=== PATIENT | female | born 1995 | race African-American/Black ===

== ENCOUNTER 2016-09-06 11:48 | Emergency (ER) | payer OTHER ==
[~2016-09-06] VITALS: Ht 149.9 cm; Wt 90.0 kg
[~2016-09-06 11:48] MED LIST: FLEXERIL PO; MEDDOSEPAK PO; NAPROSYN500 MG PO; PREVACID15 M1 OR; PROVENTIL IN; PROVENTIL90 MCG IN; SINGLAIR 5 MG CH5 MG OR; TAMIFLU 75 MG OR; ULTRAM50 M1 PO; VENTOLIN HFA IN; ZOFRAN ODT4 MG PO; ZOFRAN ODT8 MG SL
[2016-09-06] MEDS ORDERED: MOTRIN800 MG PO (12:28)
[2016-09-06] MEDS ORDERED: FLEXERIL PO (12:28)
[2016-09-06 12:32] VITALS: BP 136/57
== END 2016-09-06 12:36 | disposition home or self-care (01) | DRG 552 ==
LOC: ED 11:48
DX: M43.6 Torticollis (principal); F17.290 Nicotine dependence, other tobacco product, uncomplicated; J45.909 Unspecified asthma, uncomplicated

== ENCOUNTER 2016-10-25 03:00 | Emergency (ER) | payer OTHER ==
[~2016-10-25] VITALS: Ht 149.9 cm; Wt 106.0 kg
[~2016-10-25 03:00] MED LIST changes: +MOTRIN800 MG PO
[2016-10-25 04:41] LABS: ALBUMIN 3.7 g/dL (3.2-5.0); ALKALINE PHOSPHATASE 48 u/l (38-126); ANION GAP 12 (6-22 (CALC)); BILIRUBIN, TOTAL 0.2 mg/dL (0.0-1.4); BUN 12 mg/dL (7-17); BUN/CREATININE RATIO 20 (12-20 (CALC)); CALCIUM 8.5 mg/dL (8.4-10.2); CARBON DIOXIDE 25 mmol/l (22-30); CHLORIDE 106 mmol/l (95-108); CREATININE 0.6 mg/dL (0.5-1.0); GFR > 60 ML/MIN (>=60 (CALC)); GFR FOR AFR.AMER. > 60 ML/MIN (>=60 (CALC)); GLUCOSE 100 mg/dL (65-105); POTASSIUM 3.3 mmol/l (3.5-5.1); SGOT/AST 17 u/l (14-36); SGPT/ALT 24 u/l (9-52); SODIUM 141 mmol/l (137-146); TOTAL PROTEIN 6.5 g/dL (6.3-8.2)
[2016-10-25 04:53] LABS: MYOGLOBIN 26 ng/mL (0 - 62)
[2016-10-25 05:08] LABS: URINE BILIRUBIN - DIPSTICK NEGATIVE (NEGATIVE); URINE BLOOD DIPSTICK TRACE-INTACT (NEGATIVE); URINE CLARITY CLEAR; URINE COLOR YELLOW; URINE GLUCOSE - DIPSTICK NEGATIVE (NEGATIVE); URINE KETONE TRACE mg/dL (NEGATIVE); URINE LEUK ESTERASE NEGATIVE (NEGATIVE); URINE NITRITE - DIPSTICK NEGATIVE (Negative); URINE PROTEIN - DIPSTICK NEGATIVE (NEG-TRACE); URINE SPECIFIC GRAVITY 1.025; URINE UROBILINOGEN - DIPSTICK 0.2 E.U./dL (0.2)
[2016-10-25] MEDS ORDERED: PERCOCET 5/325M1 TAB PO (06:51)
[2016-10-25 07:05] VITALS: BP 125/65
== END 2016-10-25 07:21 | disposition home or self-care (01) | DRG 313 ==
LOC: ED 03:00
PROVIDERS: Emergency Medicine
DX: R07.89 Other chest pain (principal)

== ENCOUNTER 2017-03-03 16:11 | Emergency (ER) | payer SELFPAY ==
[~2017-03-03] VITALS: Ht 149.9 cm; Wt 105.0 kg
[~2017-03-03 16:11] MED LIST changes: +PERCOCET 5/325M1 TAB PO
[2017-03-03 16:44] LABS: HEMATOCRIT 36.6 % (37.0-47.0); HEMOGLOBIN 11.6 g/dl (12.0-16.0); IMMATURE GRANULOCYTES 0.3 % (0.0-1.0); MEAN CELL VOLUME 81.7 fL CALC (80.0-100.0); MEAN CORPUSCULAR HGB 25.9 pG CALC (26.0-32.0); MEAN CORPUSCULAR HGB CONC 31.7 g/L CALC (32.0-36.0); NEUT# 10.06 thou/uL (2.00-7.15); RED BLOOD COUNT 4.48 mill/uL (4.20-5.60); RED CELL DISTRI WIDTH 14.9 % (11.5-15.5)
[2017-03-03 17:04] LABS: ANION GAP 14 (6-22 (CALC)); BUN 13 mg/dL (7-17); BUN/CREATININE RATIO 20 (12-20 (CALC)); CALCIUM 8.7 mg/dL (8.4-10.2); CARBON DIOXIDE 21 mmol/l (22-30); CHLORIDE 111 mmol/l (95-108); CREATININE 0.7 mg/dL (0.5-1.0); GFR > 60 ML/MIN (>=60 (CALC)); GFR FOR AFR.AMER. > 60 ML/MIN (>=60 (CALC)); GLUCOSE 94 mg/dL (65-105); POTASSIUM 3.8 mmol/l (3.5-5.1); SODIUM 143 mmol/l (137-146)
[2017-03-03 18:51] VITALS: BP 127/77
== END 2017-03-03 18:51 | disposition home or self-care (01) | DRG 153 ==
LOC: ED 16:11
PROVIDERS: Family Medicine
DX: J06.9 Acute upper respiratory infection, unspecified (principal); F17.200 Nicotine dependence, unspecified, uncomplicated; J45.909 Unspecified asthma, uncomplicated

== ENCOUNTER 2019-01-30 23:19 | Emergency (ER) | payer OTHER ==
[~2019-01-30] VITALS: Ht 149.9 cm; Wt 100.0 kg
[2019-01-30] MEDS ORDERED: MOTRIN800 MG PO (23:36)
[2019-01-31 02:12] VITALS: BP 132/78
== END 2019-01-31 02:12 | disposition home or self-care (01) ==
LOC: ED 23:19
DX: O90.89 Other complications of the puerperium, not elsewhere classified (principal); M79.89 Other specified soft tissue disorders

== ENCOUNTER 2020-06-09 02:25 | Emergency (ER) | payer OTHER ==
[~2020-06-09] VITALS: Ht 149.9 cm; Wt 116.0 kg
[2020-06-09 04:18] LABS: IMMATURE GRANULOCYTES 0.3 % (0.0-5.0); MEAN CORPUSCULAR HGB 21.3 pG CALC (26.0-32.0); MEAN CORPUSCULAR HGB CONC 28.4 g/dL CAL (32.0-36.0); NEUT# 8.09 thou/uL (2.00-7.15); RED BLOOD COUNT 3.95 mill/uL (4.20-5.60); RED CELL DISTRI WIDTH 16.8 % (11.5-15.5)
[2020-06-09 04:24] LABS: HEMATOCRIT 29.6 % (37.0-47.0); HEMOGLOBIN 8.4 g/dl (12.0-16.0); MEAN CELL VOLUME 74.9 fL CALC (80.0-100.0)
[2020-06-09 04:25] LABS: ALKALINE PHOSPHATASE 76 u/l (38-126); AMYLASE 69 u/l (30-110); ANION GAP 14 (6-22 (CALC)); BUN 8 mg/dL (7-17); BUN/CREATININE RATIO 15 (12-20 (CALC)); CARBON DIOXIDE 22 mmol/l (22-30); CHLORIDE 105 mmol/l (95-108); CREATININE 0.6 mg/dL (0.5-1.0); GFR > 60 ML/MIN (>=60 (CALC)); GFR FOR AFR.AMER. > 60 ML/MIN (>=60 (CALC)); LIPASE 179 u/l (23-300); POTASSIUM 3.5 mmol/l (3.5-5.1); SGOT/AST 15 u/l (14-36); SODIUM 138 mmol/l (137-146); TOTAL PROTEIN 7.4 g/dL (6.3-8.2)
[2020-06-09 04:29] LABS: ALBUMIN 4.1 g/dL (3.2-5.0); BILIRUBIN, TOTAL 0.5 mg/dL (0.0-1.4)
[2020-06-09] MEDS ORDERED: FERR SULFATE325 MG PO (06:36)
[2020-06-09] MEDS ORDERED: MIRALAX17 GM PO (06:36)
[2020-06-09] MEDS ORDERED: PHENERGAN25 MG/TAB PO (06:36)
[2020-06-09 07:00] VITALS: BP 125/66
== END 2020-06-09 07:00 | disposition home or self-care (01) ==
LOC: ED 02:25
PROVIDERS: Family Medicine
DX: A08.4 Viral intestinal infection, unspecified (principal); K59.00 Constipation, unspecified; D64.9 Anemia, unspecified; Z87.440 Personal history of urinary (tract) infections
CPT/HCPCS: Q9967

== ENCOUNTER 2020-06-11 08:01 | Emergency (ER) | payer OTHER ==
[~2020-06-11] VITALS: Ht 149.9 cm; Wt 102.0 kg
[~2020-06-11 08:01] MED LIST changes: +FERR SULFATE325 MG PO; +MIRALAX17 GM PO; +PHENERGAN25 MG/TAB PO
[2020-06-11 08:31] LABS: HEMATOCRIT 31.4 % (37.0-47.0); IMMATURE GRANULOCYTES 0.3 % (0.0-5.0); MEAN CELL VOLUME 74.6 fL CALC (80.0-100.0); MEAN CORPUSCULAR HGB 21.4 pG CALC (26.0-32.0); MEAN CORPUSCULAR HGB CONC 28.7 g/dL CAL (32.0-36.0); NEUT# 9.04 thou/uL (2.00-7.15); RED BLOOD COUNT 4.21 mill/uL (4.20-5.60)
[2020-06-11 08:45] LABS: ALBUMIN 3.9 g/dL (3.2-5.0); ALKALINE PHOSPHATASE 75 u/l (38-126); AMYLASE 61 u/l (30-110); ANION GAP 11 (6-22 (CALC)); BILIRUBIN, TOTAL 0.6 mg/dL (0.0-1.4); BUN 6 mg/dL (7-17); BUN/CREATININE RATIO 9 (12-20 (CALC)); CARBON DIOXIDE 26 mmol/l (22-30); CHLORIDE 101 mmol/l (95-108); CREATININE 0.7 mg/dL (0.5-1.0); GFR > 60 ML/MIN (>=60 (CALC)); GFR FOR AFR.AMER. > 60 ML/MIN (>=60 (CALC)); LIPASE 206 u/l (23-300); POTASSIUM 3.3 mmol/l (3.5-5.1); SGOT/AST 26 u/l (14-36); SODIUM 135 mmol/l (137-146); TOTAL PROTEIN 6.8 g/dL (6.3-8.2)
[2020-06-11 10:33] LABS: URINE BLOOD DIPSTICK NEGATIVE (NEGATIVE); URINE COLOR YELLOW; URINE GLUCOSE - DIPSTICK NEGATIVE (NEGATIVE); URINE KETONE >=80 mg/dL (NEGATIVE); URINE LEUK ESTERASE NEGATIVE (NEGATIVE); URINE NITRITE - DIPSTICK NEGATIVE (Negative); URINE PH 6.5 (4.5-8.0); URINE PROTEIN - DIPSTICK NEGATIVE (NEG-TRACE); URINE UROBILINOGEN - DIPSTICK 0.2 E.U./dL (0.2)
[2020-06-11 10:39] LABS: URINE BILIRUBIN - DIPSTICK SMALL (NEGATIVE)
[2020-06-11] MEDS ORDERED: CIPROFLOXACN500 MG PO (12:08)
[2020-06-11 12:22] VITALS: BP 132/76
== END 2020-06-11 12:23 | disposition home or self-care (01) ==
LOC: ED 08:01
PROVIDERS: Emergency Medicine
DX: R10.33 Periumbilical pain (principal); R10.13 Epigastric pain; K57.30 Diverticulosis of large intestine without perforation or abscess without bleeding; F41.9 Anxiety disorder, unspecified; F17.200 Nicotine dependence, unspecified, uncomplicated; Z20.822 Contact with and (suspected) exposure to COVID-19
CPT/HCPCS: J2060; Q9967; S0164

== ENCOUNTER 2020-09-18 13:56 | Emergency (ER) | payer OTHER ==
[~2020-09-18] VITALS: Ht 149.9 cm; Wt 102.7 kg
[~2020-09-18 13:56] MED LIST changes: +CIPROFLOXACN500 MG PO
[2020-09-18 15:12] LABS: ALBUMIN 4.4 g/dL (3.2-5.0); ALKALINE PHOSPHATASE 72 u/l (38-126); BILIRUBIN, TOTAL 0.6 mg/dL (0.0-1.4); BUN 8 mg/dL (7-17); BUN/CREATININE RATIO 16 (12-20 (CALC)); CARBON DIOXIDE 22 mmol/l (22-30); CHLORIDE 104 mmol/l (95-108); CREATININE 0.5 mg/dL (0.5-1.0); GFR > 60 ML/MIN (>=60 (CALC)); GFR FOR AFR.AMER. > 60 ML/MIN (>=60 (CALC)); SGOT/AST 31 u/l (14-36); SODIUM 135 mmol/l (137-146)
[2020-09-18 15:13] LABS: ANION GAP 13 (6-22 (CALC)); POTASSIUM 4.4 mmol/l (3.5-5.1); TOTAL PROTEIN 8.6 g/dL (6.3-8.2)
[2020-09-18 15:20] LABS: HEMATOCRIT 33.5 % (37.0-47.0); HEMOGLOBIN 9.2 g/dl (12.0-16.0); IMMATURE GRANULOCYTES 0.2 % (0.0-5.0); MEAN CORPUSCULAR HGB 19.2 pG CALC (26.0-32.0); MEAN CORPUSCULAR HGB CONC 27.5 g/dL CAL (32.0-36.0); NEUT# 10.92 thou/uL (2.00-7.15); RED BLOOD COUNT 4.78 mill/uL (4.20-5.60)
[2020-09-18 15:23] LABS: MEAN CELL VOLUME 70.1 fL CALC (80.0-100.0)
[2020-09-18 15:50] VITALS: BP 115/71
[2020-09-18 16:04] LABS: URINE BILIRUBIN - DIPSTICK NEGATIVE (NEGATIVE); URINE BLOOD DIPSTICK NEGATIVE (NEGATIVE); URINE COLOR YELLOW; URINE GLUCOSE - DIPSTICK NEGATIVE (NEGATIVE); URINE KETONE >=80 mg/dL (NEGATIVE); URINE LEUK ESTERASE NEGATIVE (NEGATIVE); URINE PROTEIN - DIPSTICK NEGATIVE (NEG-TRACE); URINE SPECIFIC GRAVITY 1.025; URINE UROBILINOGEN - DIPSTICK 0.2 E.U./dL (0.2)
[2020-09-18 16:09] LABS: URINE NITRITE - DIPSTICK NEGATIVE (Negative)
[2020-09-19] MEDS ORDERED: PREVACID30 M3 PO (08:15)
[2020-09-19] MEDS ORDERED: CIPROFLOXACN500 MG PO (08:15)
[2020-09-19] MEDS ORDERED: ONDANSETRON4 MG PO (08:15)
[2020-09-19] MEDS ORDERED: ULTRAM50 M1 PO (08:47)
[2020-12-05] MEDS ORDERED: OMEPRAZOLE20 MG PO (09:53)
[2020-12-05] MEDS ORDERED: LORTAB 5/3255 MG PO (09:53)
== END 2020-09-18 15:51 | disposition left against medical advice (07) ==
LOC: ED 13:56
PROVIDERS: Emergency Medicine
DX: R10.84 Generalized abdominal pain (principal); R11.10 Vomiting, unspecified; F41.9 Anxiety disorder, unspecified; J45.909 Unspecified asthma, uncomplicated; F17.200 Nicotine dependence, unspecified, uncomplicated; Z91.19 Patient's noncompliance with other medical treatment and regimen; Z20.822 Contact with and (suspected) exposure to COVID-19

== ENCOUNTER 2020-09-19 04:57 | Emergency (ER) | payer OTHER ==
[~2020-09-19] VITALS: Ht 149.9 cm; Wt 97.0 kg
[2020-09-19 05:27] LABS: HEMATOCRIT 30.2 % (37.0-47.0); HEMOGLOBIN 8.3 g/dl (12.0-16.0); IMMATURE GRANULOCYTES 0.3 % (0.0-5.0); MEAN CELL VOLUME 69.6 fL CALC (80.0-100.0); MEAN CORPUSCULAR HGB 19.1 pG CALC (26.0-32.0); MEAN CORPUSCULAR HGB CONC 27.5 g/dL CAL (32.0-36.0); NEUT# 8.74 thou/uL (2.00-7.15); RED BLOOD COUNT 4.34 mill/uL (4.20-5.60); RED CELL DISTRI WIDTH 18.2 % (11.5-15.5)
[2020-09-19 05:40] LABS: ALBUMIN 4.2 g/dL (3.2-5.0); ALKALINE PHOSPHATASE 74 u/l (38-126); AMYLASE 136 u/l (30-110); ANION GAP 15 (6-22 (CALC)); BILIRUBIN, TOTAL 0.3 mg/dL (0.0-1.4); BUN 10 mg/dL (7-17); BUN/CREATININE RATIO 19 (12-20 (CALC)); CARBON DIOXIDE 20 mmol/l (22-30); CHLORIDE 106 mmol/l (95-108); CREATININE 0.5 mg/dL (0.5-1.0); GFR > 60 ML/MIN (>=60 (CALC)); GFR FOR AFR.AMER. > 60 ML/MIN (>=60 (CALC)); LIPASE 404 u/l (23-300); POTASSIUM 4.1 mmol/l (3.5-5.1); SGOT/AST 16 u/l (14-36); SODIUM 137 mmol/l (137-146); TOTAL PROTEIN 7.6 g/dL (6.3-8.2)
[2020-09-19] MEDS ORDERED: ONDANSETRON4 MG PO (08:15)
[2020-09-19] MEDS ORDERED: PREVACID30 M3 PO (08:15)
[2020-09-19] MEDS ORDERED: CIPROFLOXACN500 MG PO (08:15)
[2020-09-19 08:34] VITALS: BP 118/65
[2020-09-19] MEDS ORDERED: ULTRAM50 M1 PO (08:47)
[2020-12-05] MEDS ORDERED: LORTAB 5/3255 MG PO (09:53)
[2020-12-05] MEDS ORDERED: OMEPRAZOLE20 MG PO (09:53)
== END 2020-09-19 08:49 | disposition home or self-care (01) ==
LOC: ED 04:57
PROVIDERS: Emergency Medicine
DX: K52.9 Noninfective gastroenteritis and colitis, unspecified (principal); F17.200 Nicotine dependence, unspecified, uncomplicated
CPT/HCPCS: Q9967

== ENCOUNTER 2020-10-12 09:09 | Emergency (ER) | payer OTHER ==
[~2020-10-12] VITALS: Ht 149.9 cm; Wt 97.3 kg
[~2020-10-12 09:09] MED LIST changes: +ONDANSETRON4 MG PO; +PREVACID30 M3 PO
[2020-10-12 10:13] LABS: HEMATOCRIT 33.3 % (37.0-47.0); HEMOGLOBIN 9.3 g/dl (12.0-16.0); IMMATURE GRANULOCYTES 0.7 % (0.0-5.0); MEAN CELL VOLUME 70.3 fL CALC (80.0-100.0); MEAN CORPUSCULAR HGB 19.6 pG CALC (26.0-32.0); MEAN CORPUSCULAR HGB CONC 27.9 g/dL CAL (32.0-36.0); NEUT# 11.75 thou/uL (2.00-7.15); RED BLOOD COUNT 4.74 mill/uL (4.20-5.60); RED CELL DISTRI WIDTH 18.4 % (11.5-15.5)
[2020-10-12 10:19] LABS: ALBUMIN 4.1 g/dL (3.2-5.0); ALKALINE PHOSPHATASE 63 u/l (38-126); AMYLASE 50 u/l (30-110); ANION GAP 14 (6-22 (CALC)); BUN 9 mg/dL (7-17); BUN/CREATININE RATIO 16 (12-20 (CALC)); CARBON DIOXIDE 21 mmol/l (22-30); CHLORIDE 106 mmol/l (95-108); CREATININE 0.5 mg/dL (0.5-1.0); ETHYL ALCOHOL 0 mg/dl (0-30); GFR > 60 ML/MIN (>=60 (CALC)); GFR FOR AFR.AMER. > 60 ML/MIN (>=60 (CALC)); LIPASE 94 u/l (23-300); SGOT/AST 15 u/l (14-36); SODIUM 137 mmol/l (137-146); TOTAL PROTEIN 7.6 g/dL (6.3-8.2)
[2020-10-12 10:50] LABS: URINE BILIRUBIN - DIPSTICK NEGATIVE (NEGATIVE); URINE BLOOD DIPSTICK NEGATIVE (NEGATIVE); URINE COLOR YELLOW; URINE GLUCOSE - DIPSTICK NEGATIVE (NEGATIVE); URINE KETONE NEGATIVE (NEGATIVE); URINE LEUK ESTERASE NEGATIVE (NEGATIVE); URINE PH 7.5 (4.5-8.0); URINE PROTEIN - DIPSTICK NEGATIVE (NEG-TRACE); URINE UROBILINOGEN - DIPSTICK 0.2 E.U./dL (0.2)
[2020-10-12 10:55] LABS: URINE NITRITE - DIPSTICK NEGATIVE (Negative)
[2020-10-12] MEDS ORDERED: HYDROCO/APAP1 TA9 PO (12:15)
[2020-10-12] MEDS ORDERED: ZOFRAN4 MG/TAB PO (12:15)
[2020-10-12] MEDS ORDERED: Levaquin PO (12:15)
[2020-10-12 12:16] VITALS: BP 116/84
[2020-12-05] MEDS ORDERED: LORTAB 5/3255 MG PO (09:53)
[2020-12-05] MEDS ORDERED: OMEPRAZOLE20 MG PO (09:53)
== END 2020-10-12 12:46 | disposition left against medical advice (07) ==
LOC: ED 09:09
DX: K80.10 Calculus of gallbladder with chronic cholecystitis without obstruction (principal); F17.200 Nicotine dependence, unspecified, uncomplicated; Z91.19 Patient's noncompliance with other medical treatment and regimen

== ENCOUNTER 2020-10-13 09:19 | Observation (INO) | payer OTHER ==
[~2020-10-13] VITALS: Ht 149.9 cm; Wt 110.0 kg
[~2020-10-13 09:19] MED LIST changes: +HYDROCO/APAP1 TA9 PO; +Levaquin PO; +ZOFRAN4 MG/TAB PO
--- NOTE | 2020-10-13 09:23 | NUR ---
PT TO ROOM VIA WHEELCHAIR.
--- NOTE | 2020-10-13 09:45 | NUR ---
ASSUMED CARE OF PATIENT. PATIENT IS AAOX4 FEMALE, PAIN 8/10 TO RUQ. STATES WAS HERE YESTERDAY AND CAME BACK TODAY TO BE ADMITTED FOR HER GALLBLADDER.
--- NOTE | 2020-10-13 10:00 | NUR ---
IV STARTED TO RAC, MULTIPLE ATTEMPTS. LIMITIED IV ACCESS.
[2020-10-13 10:19] LABS: HEMATOCRIT 29.5 % (37.0-47.0); HEMOGLOBIN 8.1 g/dl (12.0-16.0); MEAN CELL VOLUME 71.4 fL CALC (80.0-100.0); MEAN CORPUSCULAR HGB 19.6 pG CALC (26.0-32.0); MEAN CORPUSCULAR HGB CONC 27.5 g/dL CAL (32.0-36.0); NEUT# 3.87 thou/uL (2.00-7.15); RED BLOOD COUNT 4.13 mill/uL (4.20-5.60); RED CELL DISTRI WIDTH 18.7 % (11.5-15.5)
[2020-10-13 10:28] LABS: ALBUMIN 3.4 g/dL (3.2-5.0); ALKALINE PHOSPHATASE 52 u/l (38-126); AMYLASE 32 u/l (30-110); ANION GAP 10 (6-22 (CALC)); BILIRUBIN, TOTAL 0.1 mg/dL (0.0-1.4); BUN 7 mg/dL (7-17); BUN/CREATININE RATIO 12 (12-20 (CALC)); CARBON DIOXIDE 24 mmol/l (22-30); CHLORIDE 107 mmol/l (95-108); CREATININE 0.6 mg/dL (0.5-1.0); GFR > 60 ML/MIN (>=60 (CALC)); GFR FOR AFR.AMER. > 60 ML/MIN (>=60 (CALC)); LIPASE 49 u/l (23-300); POTASSIUM 3.8 mmol/l (3.5-5.1); SGOT/AST 11 u/l (14-36); SODIUM 137 mmol/l (137-146); TOTAL PROTEIN 6.3 g/dL (6.3-8.2)
--- NOTE | 2020-10-13 10:36 | NUR ---
PATIENT MEDICATED PER EMAR. MEDICATIONS SIDE EFFECTS REVIEWED. PATIENT VERBALIZES UNDERSTANDING. IV TO RAC INFUSING ZOSYN AT THIS TIME. BED LOCKED AND INLOWEST POSITION. CALL VBELL INREACH. PLAN REVIEWED. PATIENT VERBALIZES UNDERSTANDING.
--- NOTE | 2020-10-13 10:42 | NUR ---
ICE CHIPS AND GINGERALE PROVIDED
--- NOTE | 2020-10-13 10:47 | NUR ---
RECEIVED ROOM [id number]
--- NOTE | 2020-10-13 10:48 | NUR ---
CALL PLACED TO KARI FOR REPORT, DESTINY CALL ME BACK.
--- NOTE | 2020-10-13 10:58 | NUR ---
REPORT TO KARI.
[2020-10-13 11:20] VITALS: BP 123/75
--- NOTE | 2020-10-13 14:06 | NUR ---
REPORT RECEIVED FROM YOGESH IN ED, PT ARRIVED ON UNIT @ 1245 TRANSPORTED VIA W/C BY ED STAFF, ALERT AND ORIENTED 4, C/O ABD PAIN @ 11/18 AND GUARDING ABD, DR PERES NITIFIED AND GAVE ORDERS. PT ORIENTED TO ROOM AND CALL CALLES, IVF INITIATED, TEDS HOSE APPLIED, CALL CALLES IN REACH AND BED LOCKED IN LOWEST POSITION.
[2020-10-13 15:50] VITALS: BP 113/52
--- NOTE | 2020-10-13 16:42 | NUR ---
PT SLEEPING AT THIS TIME, BREATHING EVEN AND NON-LABORED, NO SIGN DISCOMFORT, CALL CALLES IN REACH.
[2020-10-13 19:00] VITALS: BP 121/66
--- NOTE | 2020-10-13 20:00 | NUR ---
PHYSICAL ASSESMENT COMPLETE. PT C/O OF ABDOMINAL PAIN. SCHEDULED MEDICATIONS AND PRN MEDICATION ADMINISTERED, SEE E-MAR. PT DENIES ANY NEEDS AT THIS TIME. PLAN OF CARE REVIEWED, PT DENIES QUESTIONS, VERBALIZES UNDERSTANDING. ITEMS WITHIN REACH, BED LOCKED IN LOW POSITION W/ BEDRAILS UP X2. CALL CALLES WITHIN REACH, AGREES TO CALL PRN.
[2020-10-14] VITALS (10 sets, daily range): BP systolic 98–155; BP diastolic 58–94
--- NOTE | 2020-10-14 | NUR ---
PT LAYING IN BED WITH EYES CLOSED, APPEARS TO BE SLEEPING, APPEARS COMFORTABLE AND IN NO DISTRESS. RESPIRATIONS REGULAR AND UNLABORED. ITEMS REMAIN WITHIN REACH, CALL CALLES REMAINS WITHIN REACH. BED REMAINS LOCKED AND IN LOW POSITION WITH BEDRAILS UP X2. WILL CONTINUE TO MONITOR.
--- NOTE | 2020-10-14 05:43 | NUR ---
PT RESTING IN BED, NO SIGNS OF DISTRESS NOTED, RESP EVEN AND UNLABORED. PT VOICES NO NEEDS OR COMPLAINTS AT THIS TIME. CALL LIGHT IN REACH, CONTINUE TO MONITOR.
--- NOTE | 2020-10-14 07:00 | NUR ---
SHIFT CHANGE REPORT, PT SLEEPING BUT AWAKENED TO VERBAL STIMULATION, C/O PAIN ABD PAIN @ 07/19, IVF INFUSING, CALL CALLES IN RECH. OR CALLED FOR PT, TEAM RECEIVED PT @ 0730 AND TRANSPORTED OFF UNIT VIA STRETCHER TO OR.
--- NOTE | 2020-10-14 11:24 | NUR ---
REPORT RECEIVED FROM DARELL IN PACU, PT ARRIVED ON UNIT TRANSPORTED VIA STRETCHER BY PACU STAFF,ORIENTED AND GROGY, C/O SEVERE PAIN TO ABD AND REQUEST PAIN MEDS, AMBULATED TO BR AND URINATED, SETTLED BACK IN BED AND FELL ASLEEP IMMEDIATELY, IV CATHETER PARTIALLY DISLODGED BUT WAS REPOSITIONED SUCCESSFULLY BY NURSING STAFF. MANAGER CLINICAL REPORTEDEBL = 50CC, IVF IN = 700CC, AND STABLE VITAL SIGNS. ON ASSESSMENT, DERMABOND X 4 TO ABD WITH NO DRAINAGE, PT BEING MONITORED AT THIS TIME, WILL CONTINUE TO MONITOR.
--- NOTE | 2020-10-14 12:00 | NUR ---
PT IN BED AND VERY ANXIOUS REQUESTING "SOMETHING FOR MY NERVES", MEDICAL TEAM NOTIFIED AND ADDRESSED CONCERN, ITCHING IMPROVING AFTER BEING MEDICATED, WILL CONTINUE TO [place]
--- NOTE | 2020-10-14 12:30 | NUR ---
IV FOUND DISLODGED, NSG STAFF UNABLE TO RESTART NEW CATHETER, PT IRATE AND CRYING ASKING FOR PAIN BED, IT TOOK SEVERAL NURSES FROM VARIOUS DEPARTMENTS TO FINALLY PLACE IV CATHETER, PT WAS GIVEN SCHEDULED TORADOL BUT INSISTED TO HAVE DILAUDID RIGHT AFTER, SHE WAS INFORMED/EDUCATED ON POSSIBLE ADVERSE REACTIONS ON GIVING MEDS TOO CLOSE BUT SHE BECAME MORE IRATE, IRRITABLE, BAWLING AND BEGGING FOR MED, HER REQUEST WAS HOMORED AND SHE IMMEDIATELY CALMED DOWN AND SETTLED QUIETLY.
--- NOTE | 2020-10-14 15:25 | NUR ---
PT STATES SHE IS FEELING MUCH BETTER NOW, GETTING READY TO LEAVE FOR HOME AT THIS TIME.
--- NOTE | 2020-10-14 16:02 | NUR ---
PT FOUND IN SHOWER AT THIS TIME WITH IV DISCONNECTED FROM J.LOOP AND HANGING ON FLOOR, SHE REPORTED SHE HAD ASKED TO SEE HER NURSE AND WAS TOLD NO, WHEN NURSE INVESTIGATED MATTER IT WAS PURE MISUNDERSTANDING THE STAFF MEMBER TOLD HER SHE WOULD THE NURSE KNOW,THIS WAS CDLARIFIED WITH PT AND PT WAS INFORMED NONE OF OUR STAFF MEMBERS WOULD TELL A PT NO THEY CANT SEE THEIR NURSE. THE SITUATION WAS SETTLED AND PT WAS SATISFIED, WILL CONTINUE TO MONITOR.
--- NOTE | 2020-10-14 16:49 | NUR ---
PT JUST HAD SHOWER, PAIN MORE CONTROLLED AT THIS TIME, PT INFORMED SHE IS BEING DISCHARGED BY MD AND ADVISED TO START USING ORAL ANALGESIC TO CONTROL PAIN FROM HERE SHE WILL NOT BE HAVING IV MEDS AT HOME, SHE AGREED TO DO THAT.
--- NOTE | 2020-10-14 18:00 | NUR ---
PT HAS BEEN VOMITTING AND NOT TOLERATING LIQUIDS SINCE RETURN FROM SURGERY, MD NOTIFIED AND GAVE ORDERS, WILL CONTINUE TO MONITOR AND ADDRESS CONCERNS.
--- NOTE | 2020-10-14 19:00 | NUR ---
REPORT RECEIVED FROM Dang CAMPA RN, CARE OF PT ASSUMED AT THIS TIME.
--- NOTE | 2020-10-14 19:22 | NUR ---
COMPAZINE UNAVAILABLE AT THIS TIME. DR. ROBIN CONTACTED FOR ALTERNATIVE ANTI-EMETIC. ORDER FOR PRN PHENERGAN RECEIVED.
--- NOTE | 2020-10-14 19:50 | NUR ---
UPON ENTERING ROOM PT IN SHOWER. LARGE AMOUNT OF BILIOUS EMESIS TO FLOOR AND BEDSIDE TABLE. EMESIS CLEANED. PT ASSISTED TO DRY AND DRESS. AMBULATORY BACK TO BED. PHYSICAL ASSESMENT COMPLETE. JORGE LUIS IV NOTED TO BE INFILTRATED. IVF STOPPED. ATTEMPTS TO ESTABLISH NEW IV UNSUCCESFUL X3. #20G STARTED TO L-AC WITH GOOD BLOOD RETURN AND FLUSHES WELL. DILAUDID ADMINISTERED THROUGH IV AND IV INFLITRATED IMMEDIATELY. DURING THIS TIME PT HAD MODERATE AMOUNT BILIOUS EMESIS TO EMESIS BAG. PT MADE NPO. PT VERBALIZES AGREEMENT. PT MORE COMFORTABLE AFTER RECEIVING DILAUDID. PLAN OF CARE REVIEWED, PT VERBALIZES UNDERSTANDING. DENIES FURTHER NEEDS AT THIS TIME. CALL CALLES WITHIN REACH, AGREES TO CALL PRN.
--- NOTE | 2020-10-14 20:22 | NUR ---
SPOKE WITH Sol RED RN IN ED REGARDING NURSE TO COME TO FLOOR TO ATTEMPT IV ACCESS. WILL SEND NURSE WHEN AVAILABLE.
--- NOTE | 2020-10-14 21:22 | NUR ---
PT LAYING IN BED WITH EYES CLOSED, SNORING GENTLY, APPEARS TO BE SLEEPING COMFORTABLY. NO APPARENT DISTRESS, RESPIRATIONS REGULAR AND UNLABORED. CALL CALLES REMAINS WITHIN REACH.
--- NOTE | 2020-10-14 22:55 | NUR ---
Sol RED RN INSERTS R-AC #20G X1 ATTEMPT. IV PATENT/FLUSHES WELL.
--- NOTE | 2020-10-14 23:00 | NUR ---
PT MEDICATED WITH DILAUDID AND PHENERGAN FOR C/O PAIN AND NAUSEA. SEE E-MAR.
--- NOTE | 2020-10-15 01:04 | NUR ---
PT LAYING IN BED WITH EYES CLOSED, SNORING GENTLY, APPEARS TO BE SLEEPING COMFORTABLY. NO APPARENT DISTRESS, RESPIRATIONS REGULAR AND UNLABORED. CALL CALLES REMAINS WITHIN REACH.
[2020-10-15 04:00] VITALS: BP 117/73
[2020-10-15 07:15] VITALS: BP 110/62
--- NOTE | 2020-10-15 07:15 | NUR ---
PT SLEEP WHILE ENTERING ROOM. PATIENT IS ALERT AND ORIENTED. VITALS AND ASSESSMENT DONE. LUNGS CLEAR. S1 AND S2 HEARD. PEDAL PULSES EQUALLY AND BILATERALLY STRONG. NO DISTRESS NOTED. IV PATENT. CALL LIGHT WITHIN REACH.
--- NOTE | 2020-10-15 10:40 | NUR ---
PT C/O "ANXIETY". DR PERES NOTIFIED, ONE TIME ORDER FOR ATIVAN 0.5 MG IV ORDER RECEIVED, ORDER WRITTEN VERIFIED AND FAXED TO PHARMACY.
--- NOTE | 2020-10-15 11:15 | NUR ---
PT SLEEP WHILE ENTERING ROOM. VITALS AND ASSESSMENT DONE. LUNGS CLEAR. S1 AND S2 HEARD. PEDAL PULSES STRONG BILATERALLY. NO DISTRESS NOTED. IV PATENT AND HEALTHY. CALL LIGHT WITHIN REACH.
--- NOTE | 2020-10-15 13:25 | NUR ---
Discharge instructions given. Patient verbalizes understanding of same. Discharged in stable condition via Wheelchair to Home with staff. All belongings sent with pt. PAIN SCRIPT WAS SENT WITH PATIENT AND A COPY OF THE SCRIPT WAS PUT IN THE CHART. PATIENT ENCOURAGED TO RETURN FOR NEW OR WORSENING SYMPTOMS. DR. PERES'S BUSINESS CARD GIVEN. INSTRUCTIONS TO FOLOOW UP IN ONE WEEK AND INSTRUCTIONS FOR NO HEAVY LIFTING GIVEN. PT VERBALIZED UNDERSTANDING.
[2020-12-05] MEDS ORDERED: LORTAB 5/3255 MG PO (09:53)
[2020-12-05] MEDS ORDERED: OMEPRAZOLE20 MG PO (09:53)
== END 2020-10-15 13:20 | disposition home or self-care (01) ==
LOC: ED 09:19 → ED-I 09:45 → ED 09:58 → MS2 09:59
PROVIDERS: ADMIT Surgery; ATTEND Surgery
DX: K80.10 Calculus of gallbladder with chronic cholecystitis without obstruction (principal); J45.909 Unspecified asthma, uncomplicated; F17.200 Nicotine dependence, unspecified, uncomplicated; Z20.822 Contact with and (suspected) exposure to COVID-19
CPT/HCPCS: G0378; J0131; J2060; J2710

== ENCOUNTER 2020-11-09 08:10 | Emergency (ER) | payer OTHER ==
[~2020-11-09] VITALS: Ht 149.9 cm; Wt 97.7 kg
[2020-11-09] MEDS ORDERED: MOTRIN800 MG PO (08:36)
[2020-11-09] MEDS ORDERED: NAPROXEN375 MG PO (08:36)
[2020-11-09] MEDS ORDERED: OMEPRAZOLE DR20 MG PO (08:46)
[2020-11-09] MEDS ORDERED: SERTRALINE50 MG PO (08:46)
[2020-11-09] MEDS ORDERED: ESTARYLLA1 TAB PO (08:47)
[2020-11-09] MEDS ORDERED: IBUPROFEN600 MG PO (10:24)
[2020-11-09] MEDS ORDERED: FLEXERIL5 M1 PO (10:24)
[2020-11-09 10:30] VITALS: BP 139/69
[2020-12-05] MEDS ORDERED: LORTAB 5/3255 MG PO (09:53)
[2020-12-05] MEDS ORDERED: OMEPRAZOLE20 MG PO (09:53)
== END 2020-11-09 10:30 | disposition home or self-care (01) ==
LOC: ED 08:10
DX: S39.012A Strain of muscle, fascia and tendon of lower back, initial encounter (principal); S23.3XXA Sprain of ligaments of thoracic spine, initial encounter; Y04.2XXA Assault by strike against or bumped into by another person, initial encounter; S83.91XA Sprain of unspecified site of right knee, initial encounter; W10.9XXA Fall (on) (from) unspecified stairs and steps, initial encounter; F17.210 Nicotine dependence, cigarettes, uncomplicated

== ENCOUNTER 2020-12-08 07:08 | Emergency (ER) | payer OTHER ==
[~2020-12-08] VITALS: Ht 149.9 cm; Wt 98.6 kg
[~2020-12-08 07:08] MED LIST changes: +ESTARYLLA1 TAB PO; +FLEXERIL5 M1 PO; +IBUPROFEN600 MG PO; +LORTAB 5/3255 MG PO; +NAPROXEN375 MG PO; +OMEPRAZOLE DR20 MG PO; +OMEPRAZOLE20 MG PO; +SERTRALINE50 MG PO
[2020-12-08 08:48] LABS: HEMATOCRIT 29.1 % (37.0-47.0); HEMOGLOBIN 8.1 g/dl (12.0-16.0); IMMATURE GRANULOCYTES 0.1 % (0.0-5.0); MEAN CELL VOLUME 70.5 fL CALC (80.0-100.0); MEAN CORPUSCULAR HGB 19.6 pG CALC (26.0-32.0); MEAN CORPUSCULAR HGB CONC 27.8 g/dL CAL (32.0-36.0); NEUT# 6.01 thou/uL (2.00-7.15); RED BLOOD COUNT 4.13 mill/uL (4.20-5.60); RED CELL DISTRI WIDTH 18.3 % (11.5-15.5)
[2020-12-08 09:04] LABS: ALBUMIN 3.9 g/dL (3.2-5.0); ALKALINE PHOSPHATASE 61 u/l (38-126); ANION GAP 10 (6-22 (CALC)); BILIRUBIN, TOTAL 0.1 mg/dL (0.0-1.4); BUN 12 mg/dL (7-17); BUN/CREATININE RATIO 24 (12-20 (CALC)); C-REACTIVE PROTEIN 0.7 mg/dL (0-0.9); CARBON DIOXIDE 26 mmol/l (22-30); CHLORIDE 105 mmol/l (95-108); CREATININE 0.5 mg/dL (0.5-1.0); GFR > 60 ML/MIN (>=60 (CALC)); GFR FOR AFR.AMER. > 60 ML/MIN (>=60 (CALC)); LIPASE 109 u/l (23-300); MAGNESIUM 1.7 mg/dL (1.6-2.3); POTASSIUM 3.8 mmol/l (3.5-5.1); SGOT/AST 16 u/l (14-36); SODIUM 136 mmol/l (137-146); TOTAL PROTEIN 7.2 g/dL (6.3-8.2)
[2020-12-08 10:23] VITALS: BP 120/70
== END 2020-12-08 10:25 | disposition left against medical advice (07) ==
LOC: ED 07:08
PROVIDERS: Emergency Medicine
DX: M54.6 Pain in thoracic spine (principal); R10.9 Unspecified abdominal pain; F17.200 Nicotine dependence, unspecified, uncomplicated; Z91.19 Patient's noncompliance with other medical treatment and regimen; Z20.822 Contact with and (suspected) exposure to COVID-19
CPT/HCPCS: Q9967

== ENCOUNTER 2021-01-31 07:58 | Emergency (ER) | payer OTHER ==
[~2021-01-31] VITALS: Ht 149.9 cm; Wt 90.0 kg
[2021-01-31] MEDS ORDERED: HYDROCO/APAP1 TA9 PO (08:15)
[2021-01-31 08:40] LABS: HEMATOCRIT 29.2 % (37.0-47.0); IMMATURE GRANULOCYTES 0.1 % (0.0-5.0); MEAN CELL VOLUME 69.9 fL CALC (80.0-100.0); MEAN CORPUSCULAR HGB 19.1 pG CALC (26.0-32.0); MEAN CORPUSCULAR HGB CONC 27.4 g/dL CAL (32.0-36.0); NEUT# 6.78 thou/uL (2.00-7.15); RED BLOOD COUNT 4.18 mill/uL (4.20-5.60); RED CELL DISTRI WIDTH 19.1 % (11.5-15.5)
[2021-01-31 08:54] LABS: ALKALINE PHOSPHATASE 58 u/l (38-126); AMYLASE 56 u/l (30-110); ANION GAP 11 (6-22 (CALC)); BUN 11 mg/dL (7-17); BUN/CREATININE RATIO 22 (12-20 (CALC)); CARBON DIOXIDE 26 mmol/l (22-30); CHLORIDE 107 mmol/l (95-108); CREATININE 0.5 mg/dL (0.5-1.0); GFR > 60 ML/MIN (>=60 (CALC)); GFR FOR AFR.AMER. > 60 ML/MIN (>=60 (CALC)); LIPASE 80 u/l (23-300); SGOT/AST 22 u/l (14-36); SODIUM 139 mmol/l (137-146); TOTAL PROTEIN 7.5 g/dL (6.3-8.2)
[2021-01-31 08:56] LABS: BILIRUBIN, TOTAL 0.2 mg/dL (0.0-1.4)
[2021-01-31 11:31] LABS: URINE BILIRUBIN - DIPSTICK NEGATIVE (NEGATIVE); URINE BLOOD DIPSTICK NEGATIVE (NEGATIVE); URINE COLOR YELLOW; URINE GLUCOSE - DIPSTICK NEGATIVE (NEGATIVE); URINE KETONE NEGATIVE (NEGATIVE); URINE LEUK ESTERASE NEGATIVE (NEGATIVE); URINE PROTEIN - DIPSTICK NEGATIVE (NEG-TRACE); URINE SPECIFIC GRAVITY 1.025; URINE UROBILINOGEN - DIPSTICK 0.2 E.U./dL (0.2)
[2021-01-31 11:33] LABS: URINE NITRITE - DIPSTICK NEGATIVE (Negative)
[2021-01-31] MEDS ORDERED: ONDANSETRON4 MG PO (12:47)
[2021-01-31] MEDS ORDERED: TORADOL PO (12:47)
[2021-01-31] MEDS ORDERED: PERCOCET 5/325M1 TAB PO (12:47)
[2021-01-31 12:53] VITALS: BP 100/60
== END 2021-01-31 13:05 | disposition home or self-care (01) ==
LOC: ED 07:58
PROVIDERS: Emergency Medicine
DX: R11.2 Nausea with vomiting, unspecified (principal); M25.561 Pain in right knee; M25.461 Effusion, right knee; J45.909 Unspecified asthma, uncomplicated; F17.200 Nicotine dependence, unspecified, uncomplicated; W18.39XA Other fall on same level, initial encounter

== ENCOUNTER 2021-03-01 09:48 | Emergency (ER) | payer OTHER ==
[~2021-03-01] VITALS: Ht 149.9 cm; Wt 100.0 kg
[~2021-03-01 09:48] MED LIST changes: +TORADOL PO
[2021-03-01 10:40] LABS: HEMATOCRIT 30.7 % (37.0-47.0); HEMOGLOBIN 8.7 g/dl (12.0-16.0); IMMATURE GRANULOCYTES 0.2 % (0.0-5.0); MEAN CELL VOLUME 68.5 fL CALC (80.0-100.0); MEAN CORPUSCULAR HGB 19.4 pG CALC (26.0-32.0); MEAN CORPUSCULAR HGB CONC 28.3 g/dL CAL (32.0-36.0); NEUT# 9.04 thou/uL (2.00-7.15); RED BLOOD COUNT 4.48 mill/uL (4.20-5.60); RED CELL DISTRI WIDTH 19.6 % (11.5-15.5)
[2021-03-01 10:58] LABS: ALBUMIN 4.4 g/dL (3.2-5.0); ALKALINE PHOSPHATASE 64 u/l (38-126); ANION GAP 15 (6-22 (CALC)); BILIRUBIN, TOTAL 0.3 mg/dL (0.0-1.4); BUN 10 mg/dL (7-17); BUN/CREATININE RATIO 17 (12-20 (CALC)); CARBON DIOXIDE 23 mmol/l (22-30); CHLORIDE 106 mmol/l (95-108); CREATININE 0.6 mg/dL (0.5-1.0); GFR > 60 ML/MIN (>=60 (CALC)); GFR FOR AFR.AMER. > 60 ML/MIN (>=60 (CALC)); LIPASE 104 u/l (23-300); POTASSIUM 3.8 mmol/l (3.5-5.1); SGOT/AST 13 u/l (14-36); SODIUM 140 mmol/l (137-146)
[2021-03-01 11:14] LABS: URINE BILIRUBIN - DIPSTICK NEGATIVE (NEGATIVE); URINE BLOOD DIPSTICK NEGATIVE (NEGATIVE); URINE COLOR YELLOW; URINE GLUCOSE - DIPSTICK NEGATIVE (NEGATIVE); URINE KETONE NEGATIVE (NEGATIVE); URINE LEUK ESTERASE NEGATIVE (NEGATIVE); URINE PH 8.5 (4.5-8.0); URINE PROTEIN - DIPSTICK TRACE mg/dL (NEG-TRACE); URINE SPECIFIC GRAVITY 1.015; URINE UROBILINOGEN - DIPSTICK 0.2 E.U./dL (0.2)
[2021-03-01 11:16] LABS: URINE NITRITE - DIPSTICK NEGATIVE (Negative)
[2021-03-01] MEDS ORDERED: ZOFRAN4 M1 PO (12:57)
[2021-03-01] MEDS ORDERED: HYOSCYAMINE0.125 M3 PO (12:57)
[2021-03-01 13:17] VITALS: BP 126/85
== END 2021-03-01 13:45 | disposition home or self-care (01) ==
LOC: ED 09:48
PROVIDERS: Family Medicine
DX: R10.13 Epigastric pain (principal); R11.2 Nausea with vomiting, unspecified; E66.9 Obesity, unspecified; F17.200 Nicotine dependence, unspecified, uncomplicated
CPT/HCPCS: Q9967

== ENCOUNTER 2021-03-02 11:27 | Emergency (ER) | payer OTHER ==
[~2021-03-02] VITALS: Ht 149.9 cm; Wt 100.0 kg
[~2021-03-02 11:27] MED LIST changes: +HYOSCYAMINE0.125 M3 PO; +ZOFRAN4 M1 PO
[2021-03-02 12:15] VITALS: BP 127/76
== END 2021-03-02 12:15 | disposition left against medical advice (07) | DRG 951 ==
LOC: ED 11:27 → LWOBS 12:14
DX: Z53.21 Procedure and treatment not carried out due to patient leaving prior to being seen by health care provider (principal)

== ENCOUNTER 2021-03-04 10:54 | Emergency (ER) | payer OTHER ==
[~2021-03-04] VITALS: Ht 149.9 cm; Wt 100.0 kg
[2021-03-04 11:53] LABS: HEMATOCRIT 29.9 % (37.0-47.0); HEMOGLOBIN 8.3 g/dl (12.0-16.0); IMMATURE GRANULOCYTES 0.1 % (0.0-5.0); MEAN CELL VOLUME 69.5 fL CALC (80.0-100.0); MEAN CORPUSCULAR HGB 19.3 pG CALC (26.0-32.0); MEAN CORPUSCULAR HGB CONC 27.8 g/dL CAL (32.0-36.0); NEUT# 12.03 thou/uL (2.00-7.15); RED BLOOD COUNT 4.3 mill/uL (4.20-5.60); RED CELL DISTRI WIDTH 19.6 % (11.5-15.5)
[2021-03-04 12:02] LABS: ALBUMIN 4.3 g/dL (3.2-5.0); ALKALINE PHOSPHATASE 73 u/l (38-126); ANION GAP 16 (6-22 (CALC)); BILIRUBIN, TOTAL 0.3 mg/dL (0.0-1.4); BUN 11 mg/dL (7-17); BUN/CREATININE RATIO 20 (12-20 (CALC)); CARBON DIOXIDE 21 mmol/l (22-30); CHLORIDE 107 mmol/l (95-108); CREATININE 0.6 mg/dL (0.5-1.0); GFR > 60 ML/MIN (>=60 (CALC)); GFR FOR AFR.AMER. > 60 ML/MIN (>=60 (CALC)); LIPASE 399 u/l (23-300); POTASSIUM 3.8 mmol/l (3.5-5.1); SGOT/AST 22 u/l (14-36); SODIUM 139 mmol/l (137-146)
[2021-03-04] MEDS ORDERED: PROTONIX40 M2 PO (13:46)
[2021-03-04] MEDS ORDERED: ZOFRAN4 M1 PO (13:50)
[2021-03-04 14:02] VITALS: BP 110/62
== END 2021-03-04 14:02 | disposition home or self-care (01) ==
LOC: ED 10:54
PROVIDERS: Family Medicine
DX: R10.13 Epigastric pain (principal); E66.9 Obesity, unspecified
CPT/HCPCS: Q9967

== ENCOUNTER 2021-04-06 18:49 | Emergency (ER) | payer OTHER ==
[~2021-04-06] VITALS: Ht 149.9 cm; Wt 98.5 kg
[~2021-04-06 18:49] MED LIST changes: +PROMETHAZINE12.5 MG PO; +PROTONIX40 M2 PO
[2021-04-06] MEDS ORDERED: HYDROCO/APAP1 TA9 PO (19:13)
[2021-04-06 21:28] LABS: HEMATOCRIT 30.7 % (37.0-47.0); HEMOGLOBIN 8.5 g/dl (12.0-16.0); IMMATURE GRANULOCYTES 0.1 % (0.0-5.0); MEAN CELL VOLUME 69.9 fL CALC (80.0-100.0); MEAN CORPUSCULAR HGB 19.4 pG CALC (26.0-32.0); MEAN CORPUSCULAR HGB CONC 27.7 g/dL CAL (32.0-36.0); NEUT# 9.01 thou/uL (2.00-7.15); RED BLOOD COUNT 4.39 mill/uL (4.20-5.60); RED CELL DISTRI WIDTH 19.5 % (11.5-15.5)
[2021-04-06 21:47] LABS: ALBUMIN 4.4 g/dL (3.2-5.0); ALKALINE PHOSPHATASE 73 u/l (38-126); ANION GAP 12 (6-22 (CALC)); BILIRUBIN, TOTAL 0.5 mg/dL (0.0-1.4); BUN 9 mg/dL (7-17); BUN/CREATININE RATIO 15 (12-20 (CALC)); CARBON DIOXIDE 25 mmol/l (22-30); CHLORIDE 108 mmol/l (95-108); CREATININE 0.6 mg/dL (0.5-1.0); GFR > 60 ML/MIN (>=60 (CALC)); GFR FOR AFR.AMER. > 60 ML/MIN (>=60 (CALC)); LIPASE 391 u/l (23-300); POTASSIUM 3.6 mmol/l (3.5-5.1); SGOT/AST 18 u/l (14-36); SODIUM 141 mmol/l (137-146); TOTAL PROTEIN 8.2 g/dL (6.3-8.2)
[2021-04-06 23:48] LABS: URINE BILIRUBIN - DIPSTICK NEGATIVE (NEGATIVE); URINE BLOOD DIPSTICK NEGATIVE (NEGATIVE); URINE COLOR YELLOW; URINE GLUCOSE - DIPSTICK NEGATIVE (NEGATIVE); URINE KETONE >=80 mg/dL (NEGATIVE); URINE LEUK ESTERASE NEGATIVE (NEGATIVE); URINE PROTEIN - DIPSTICK TRACE mg/dL (NEG-TRACE); URINE UROBILINOGEN - DIPSTICK 0.2 E.U./dL (0.2)
[2021-04-06 23:52] LABS: URINE NITRITE - DIPSTICK NEGATIVE (Negative)
[2021-04-07] MEDS ORDERED: ZOFRAN4 MG/TAB PO (00:28)
[2021-04-07 00:59] VITALS: BP 148/73
== END 2021-04-07 01:08 | disposition home or self-care (01) ==
LOC: ED 18:49
PROVIDERS: Emergency Medicine
DX: R11.2 Nausea with vomiting, unspecified (principal); R10.9 Unspecified abdominal pain
CPT/HCPCS: J2060

== ENCOUNTER 2021-07-10 10:49 | Emergency (ER) | payer OTHER ==
[2021-07-10] VITALS (7 sets, daily range): BP systolic 116–144; BP diastolic 62–113
[~2021-07-10] VITALS: Ht 149.9 cm; Wt 91.0 kg
[2021-07-10 12:26] LABS: URINE BILIRUBIN - DIPSTICK NEGATIVE (NEGATIVE); URINE BLOOD DIPSTICK LARGE (NEGATIVE); URINE GLUCOSE - DIPSTICK NEGATIVE (NEGATIVE); URINE KETONE NEGATIVE (NEGATIVE); URINE LEUK ESTERASE NEGATIVE (NEGATIVE); URINE PH 8.5 (4.5-8.0); URINE PROTEIN - DIPSTICK 100 mg/dL (NEG-TRACE); URINE UROBILINOGEN - DIPSTICK 0.2 E.U./dL (0.2)
[2021-07-10 12:34] LABS: URINE COLOR RED; URINE NITRITE - DIPSTICK NEGATIVE (Negative); URINE RBC 50-100 RBC/hpf (0-5)
[2021-07-10 12:43] LABS: HEMATOCRIT 30.6 % (37.0-47.0); HEMOGLOBIN 8.6 g/dl (12.0-16.0); IMMATURE GRANULOCYTES 0.2 % (0.0-5.0); MEAN CELL VOLUME 71.3 fL CALC (80.0-100.0); MEAN CORPUSCULAR HGB CONC 28.1 g/dL CAL (32.0-36.0); NEUT# 9.86 thou/uL (2.00-7.15); RED BLOOD COUNT 4.29 mill/uL (4.20-5.60); RED CELL DISTRI WIDTH 18.2 % (11.5-15.5)
[2021-07-10 13:00] LABS: ALKALINE PHOSPHATASE 58 u/l (38-126); AMYLASE 42 u/l (30-110); BILIRUBIN, TOTAL 0.3 mg/dL (0.0-1.4); BUN 9 mg/dL (7-17); BUN/CREATININE RATIO 17 (12-20 (CALC)); CHLORIDE 112 mmol/l (95-108); CREATININE 0.5 mg/dL (0.5-1.0); GFR > 60 ML/MIN (>=60 (CALC)); GFR FOR AFR.AMER. > 60 ML/MIN (>=60 (CALC)); LIPASE 64 u/l (23-300); POTASSIUM 4.3 mmol/l (3.5-5.1); SGOT/AST 23 u/l (14-36); SODIUM 139 mmol/l (137-146); TOTAL PROTEIN 7.3 g/dL (6.3-8.2)
[2021-07-10 13:07] LABS: ANION GAP 13 (6-22 (CALC)); CARBON DIOXIDE 18 mmol/l (22-30)
== END 2021-07-10 14:20 | disposition left against medical advice (07) ==
LOC: ED 10:49
DX: R11.15 Cyclical vomiting syndrome unrelated to migraine (principal); D64.9 Anemia, unspecified; Z91.19 Patient's noncompliance with other medical treatment and regimen
CPT/HCPCS: J2060

== ENCOUNTER 2021-07-10 18:14 | Emergency (ER) | payer OTHER ==
[~2021-07-10] VITALS: Ht 149.9 cm; Wt 102.0 kg
[2021-07-10 18:21] VITALS: BP 115/88
[2021-07-10 19:02] VITALS: BP 101/57
[2021-07-10 19:27] VITALS: BP 101/57
[2021-07-10 19:28] LABS: HEMATOCRIT 34.7 % (37.0-47.0); HEMOGLOBIN 9.3 g/dl (12.0-16.0); IMMATURE GRANULOCYTES 0.3 % (0.0-5.0); MEAN CELL VOLUME 74.1 fL CALC (80.0-100.0); MEAN CORPUSCULAR HGB 19.9 pG CALC (26.0-32.0); MEAN CORPUSCULAR HGB CONC 26.8 g/dL CAL (32.0-36.0); NEUT# 10.84 thou/uL (2.00-7.15); RED BLOOD COUNT 4.68 mill/uL (4.20-5.60); RED CELL DISTRI WIDTH 18.3 % (11.5-15.5)
[2021-07-10 19:38] LABS: ALBUMIN 4.5 g/dL (3.2-5.0); ALKALINE PHOSPHATASE 68 u/l (38-126); ANION GAP 14 (6-22 (CALC)); BILIRUBIN, TOTAL 0.4 mg/dL (0.0-1.4); BUN 8 mg/dL (7-17); BUN/CREATININE RATIO 14 (12-20 (CALC)); CARBON DIOXIDE 20 mmol/l (22-30); CHLORIDE 109 mmol/l (95-108); CREATININE 0.6 mg/dL (0.5-1.0); GFR > 60 ML/MIN (>=60 (CALC)); GFR FOR AFR.AMER. > 60 ML/MIN (>=60 (CALC)); LIPASE 348 u/l (23-300); POTASSIUM 3.9 mmol/l (3.5-5.1); SGOT/AST 23 u/l (14-36); SODIUM 140 mmol/l (137-146); TOTAL PROTEIN 8.2 g/dL (6.3-8.2)
== END 2021-07-10 19:27 | disposition left against medical advice (07) ==
LOC: ED 18:14
PROVIDERS: Nurse Practitioner
DX: R10.9 Unspecified abdominal pain (principal); R11.2 Nausea with vomiting, unspecified; Z91.19 Patient's noncompliance with other medical treatment and regimen

== ENCOUNTER 2021-07-19 12:29 | Emergency (ER) | payer OTHER ==
[~2021-07-19] VITALS: Ht 149.9 cm; Wt 102.0 kg
[2021-07-19 13:21] LABS: HEMATOCRIT 30.6 % (37.0-47.0); HEMOGLOBIN 8.4 g/dl (12.0-16.0); IMMATURE GRANULOCYTES 0.2 % (0.0-5.0); MEAN CELL VOLUME 72.5 fL CALC (80.0-100.0); MEAN CORPUSCULAR HGB 19.9 pG CALC (26.0-32.0); MEAN CORPUSCULAR HGB CONC 27.5 g/dL CAL (32.0-36.0); NEUT# 10.58 thou/uL (2.00-7.15); RED BLOOD COUNT 4.22 mill/uL (4.20-5.60); RED CELL DISTRI WIDTH 18.4 % (11.5-15.5)
[2021-07-19 13:42] LABS: ALBUMIN 4.1 g/dL (3.2-5.0); ALKALINE PHOSPHATASE 61 u/l (38-126); ANION GAP 13 (6-22 (CALC)); BUN 11 mg/dL (7-17); BUN/CREATININE RATIO 18 (12-20 (CALC)); CARBON DIOXIDE 23 mmol/l (22-30); CHLORIDE 109 mmol/l (95-108); CREATININE 0.6 mg/dL (0.5-1.0); GFR > 60 ML/MIN (>=60 (CALC)); GFR FOR AFR.AMER. > 60 ML/MIN (>=60 (CALC)); POTASSIUM 3.7 mmol/l (3.5-5.1); SGOT/AST 19 u/l (14-36); SODIUM 141 mmol/l (137-146); TOTAL PROTEIN 7.4 g/dL (6.3-8.2)
[2021-07-19 13:43] LABS: BILIRUBIN, TOTAL 0.2 mg/dL (0.0-1.4)
[2021-07-19 14:33] VITALS: BP 140/92
== END 2021-07-19 14:34 | disposition left against medical advice (07) ==
LOC: ED 12:29
PROVIDERS: Family Medicine
DX: R10.13 Epigastric pain (principal); R10.12 Left upper quadrant pain; R10.32 Left lower quadrant pain; R11.2 Nausea with vomiting, unspecified; R19.7 Diarrhea, unspecified; E66.9 Obesity, unspecified; Z91.19 Patient's noncompliance with other medical treatment and regimen

== ENCOUNTER 2021-12-11 11:43 | Emergency (ER) | payer OTHER ==
[~2021-12-11] VITALS: Ht 149.9 cm; Wt 102.0 kg
[2021-12-11 12:19] LABS: URINE BILIRUBIN - DIPSTICK NEGATIVE (NEGATIVE); URINE BLOOD DIPSTICK NEGATIVE (NEGATIVE); URINE COLOR YELLOW; URINE GLUCOSE - DIPSTICK NEGATIVE (NEGATIVE); URINE KETONE NEGATIVE (NEGATIVE); URINE LEUK ESTERASE NEGATIVE (NEGATIVE); URINE PROTEIN - DIPSTICK NEGATIVE (NEG-TRACE); URINE UROBILINOGEN - DIPSTICK 0.2 E.U./dL (0.2)
[2021-12-11 12:20] LABS: URINE NITRITE - DIPSTICK NEGATIVE (Negative)
[2021-12-11 12:43] LABS: IMMATURE GRANULOCYTES 0.2 % (0.0-5.0); MEAN CELL VOLUME 70.7 fL CALC (80.0-100.0); MEAN CORPUSCULAR HGB 20.2 pG CALC (26.0-32.0); MEAN CORPUSCULAR HGB CONC 28.6 g/dL CAL (32.0-36.0); NEUT# 5.19 thou/uL (2.00-7.15); RED BLOOD COUNT 3.96 mill/uL (4.20-5.60)
[2021-12-11 13:00] LABS: ALBUMIN 3.8 g/dL (3.2-5.0); ALKALINE PHOSPHATASE 47 u/l (38-126); ANION GAP 13 (6-22 (CALC)); BILIRUBIN, TOTAL 0.2 mg/dL (0.0-1.4); BUN 8 mg/dL (7-17); BUN/CREATININE RATIO 16 (12-20 (CALC)); CARBON DIOXIDE 21 mmol/l (22-30); CHLORIDE 110 mmol/l (95-108); CREATININE 0.5 mg/dL (0.5-1.0); GFR FOR AFR.AMER. > 60 ML/MIN (>=60 (CALC)); GFR OTHER RACES > 60 ML/MIN (>=60 (CALC)); POTASSIUM 3.8 mmol/l (3.5-5.1); SGOT/AST 12 u/l (14-36); SODIUM 139 mmol/l (137-146); TOTAL PROTEIN 6.8 g/dL (6.3-8.2)
[2021-12-11 13:16] LABS: BETA-HCG, QUANT(RESULT NUMBER) 3757 mIU/mL
[2021-12-11 15:15] VITALS: BP 112/68
== END 2021-12-11 15:28 | disposition left against medical advice (07) ==
LOC: ED 11:43
PROVIDERS: Internal Medicine; Nurse Practitioner
DX: O20.0 Threatened abortion (principal); Z3A.00 Weeks of gestation of pregnancy not specified; Z91.19 Patient's noncompliance with other medical treatment and regimen

== ENCOUNTER 2022-01-12 21:21 | Emergency (ER) | payer OTHER ==
[~2022-01-12] VITALS: Ht 149.9 cm; Wt 100.0 kg
[~2022-01-12 21:21] MED LIST changes: +PEPCID20 MG PO; +PHENERGAN25 MG RE
[2022-01-12 22:06] LABS: HEMATOCRIT 25.9 % (37.0-47.0); HEMOGLOBIN 7.7 g/dl (12.0-16.0); IMMATURE GRANULOCYTES 0.2 % (0.0-5.0); MEAN CELL VOLUME 71.2 fL CALC (80.0-100.0); MEAN CORPUSCULAR HGB 21.2 pG CALC (26.0-32.0); MEAN CORPUSCULAR HGB CONC 29.7 g/dL CAL (32.0-36.0); NEUT# 11.98 thou/uL (2.00-7.15); RED BLOOD COUNT 3.64 mill/uL (4.20-5.60); RED CELL DISTRI WIDTH 18.9 % (11.5-15.5)
[2022-01-12 22:20] LABS: ALBUMIN 4.3 g/dL (3.2-5.0); ALKALINE PHOSPHATASE 51 u/l (38-126); BILIRUBIN, TOTAL 0.2 mg/dL (0.0-1.4); BUN 6 mg/dL (7-17); BUN/CREATININE RATIO 12 (12-20 (CALC)); CHLORIDE 106 mmol/l (95-108); CREATININE 0.5 mg/dL (0.5-1.0); GFR FOR AFR.AMER. > 60 ML/MIN (>=60 (CALC)); GFR OTHER RACES > 60 ML/MIN (>=60 (CALC)); LIPASE 86 u/l (23-300); POTASSIUM 3.6 mmol/l (3.5-5.1); SGOT/AST 25 u/l (14-36); SODIUM 134 mmol/l (137-146); TOTAL PROTEIN 7.4 g/dL (6.3-8.2)
[2022-01-12 22:25] LABS: ANION GAP 20 (6-22 (CALC)); CARBON DIOXIDE 12 mmol/l (22-30)
[2022-01-13 01:07] VITALS: BP 131/81
[2022-01-13] MEDS ORDERED: PHENERGAN25 MG RE (01:07)
== END 2022-01-13 01:21 | disposition home or self-care (01) ==
LOC: ED 21:21
PROVIDERS: Family Medicine
DX: O26.891 Other specified pregnancy related conditions, first trimester (principal); R10.13 Epigastric pain; R11.2 Nausea with vomiting, unspecified; Z3A.00 Weeks of gestation of pregnancy not specified; R11.10 Vomiting, unspecified; O99.611 Diseases of the digestive system complicating pregnancy, first trimester; K29.70 Gastritis, unspecified, without bleeding; Z3A.08 8 weeks gestation of pregnancy
CPT/HCPCS: S0164

== ENCOUNTER 2022-01-13 01:56 | Observation (INO) | payer OTHER ==
[~2022-01-13] VITALS: Ht 149.9 cm; Wt 97.8 kg
--- NOTE | 2022-01-13 03:55 | NUR ---
RECIEVED VERBAL REPORT OVER THE PHONE FROM ED NURSE ROBERT.
--- NOTE | 2022-01-13 04:26 | NUR ---
RECIEVED PT FROM ED. PT ALERT AND ORIENTATED X3. BREATHING EVEN AND NON LABORED.IVF RUNNING ORDERED. VITALS OBTAINED, WIEGHT ON STANDING SCALE. PT REPORTS RIGHT ARM SORE FROM FALLING ON IT, DENIES FALLING ON OR AFFECTING ABDOMEN. REPORTS NAUSEA, CRYSTAL AGUILAR IN ED 1 HOUR AGO. GAVE PT ISAI BANSAL. PT REQUESTING SHOWER AND TO FINISH ADMISSION LATER. ORIENTATED TO ROOM. WILL RETURN. ALL SAFETY PRECAUTIONS IN PLACE AT THIS TIME.
--- NOTE | 2022-01-13 06:00 | NUR ---
PT C/O N/V, REQUESTING ANXIETY AND PAIN MEDICATION. IV SITE REMOVED DUE TO PT TAKING [place] SHOWERS AND NOT ALLOWING STAFF TO COVER SITE. C/O RIGHT ARM PAIN. WILL ATTEMPT NEW IV. ALL SAFETY PRECAUTIONS IN PLACE AT THIS TIME.
[2022-01-13 06:29] VITALS: BP 115/59
--- NOTE | 2022-01-13 07:13 | NUR ---
PATIENT HAS NO IV ACCESS. I TRIED TO GET ON PATIENT BUT PATIENT STATES THAT SHE WANTS ME TO COME BACK A LITTLE LATER THAT SHE DOES NOT WANT TO BE BOTHERED RIGHT NOW. I INFORMED HER OF THE IMPORTANCE OF NEEDING AN IV. PATIENT WANTS ONE BUT JUST A LITTLE LATER. WILL TRY AGAIN AGAIN.
[2022-01-13 10:34] LABS: ALBUMIN 4.1 g/dL (3.2-5.0); ALKALINE PHOSPHATASE 48 u/l (38-126); ANION GAP 20 (6-22 (CALC)); BUN 5 mg/dL (7-17); BUN/CREATININE RATIO 11 (12-20 (CALC)); CARBON DIOXIDE 12 mmol/l (22-30); CHLORIDE 108 mmol/l (95-108); CREATININE 0.5 mg/dL (0.5-1.0); GFR FOR AFR.AMER. > 60 ML/MIN (>=60 (CALC)); GFR OTHER RACES > 60 ML/MIN (>=60 (CALC)); POTASSIUM 3.5 mmol/l (3.5-5.1); SGOT/AST 25 u/l (14-36); SODIUM 136 mmol/l (137-146); TOTAL PROTEIN 7.4 g/dL (6.3-8.2)
[2022-01-13 10:35] LABS: BILIRUBIN, TOTAL 0.3 mg/dL (0.0-1.4)
[2022-01-13 11:50] VITALS: BP 123/63
== END 2022-01-13 14:38 | disposition home or self-care (01) ==
LOC: ED 01:56 → MS2 02:15
PROVIDERS: Nurse Practitioner; ADMIT Internal Medicine; ATTEND Internal Medicine
DX: O99.321 Drug use complicating pregnancy, first trimester (principal); F11.93 Opioid use, unspecified with withdrawal; F12.90 Cannabis use, unspecified, uncomplicated; O99.311 Alcohol use complicating pregnancy, first trimester; F10.90 Alcohol use, unspecified, uncomplicated; R11.15 Cyclical vomiting syndrome unrelated to migraine; R10.13 Epigastric pain; G89.29 Other chronic pain; Z3A.10 10 weeks gestation of pregnancy; Z20.822 Contact with and (suspected) exposure to COVID-19; Z79.891 Long term (current) use of opiate analgesic
CPT/HCPCS: G0378

== ENCOUNTER 2022-01-19 14:03 | Emergency (ER) | payer OTHER ==
[~2022-01-19] VITALS: Ht 149.9 cm; Wt 98.0 kg
[2022-01-19 14:08] VITALS: BP 132/91
[2022-01-19 14:16] VITALS: BP 128/65
[2022-01-19 15:15] VITALS: BP 131/71
[2022-01-19 15:33] VITALS: BP 134/79
[2022-01-19 15:56] LABS: HEMATOCRIT 26.7 % (37.0-47.0); HEMOGLOBIN 7.9 g/dl (12.0-16.0); IMMATURE GRANULOCYTES 0.2 % (0.0-5.0); MEAN CORPUSCULAR HGB CONC 29.6 g/dL CAL (32.0-36.0); NEUT# 9.9 thou/uL (2.00-7.15); RED BLOOD COUNT 3.76 mill/uL (4.20-5.60); RED CELL DISTRI WIDTH 18.7 % (11.5-15.5)
[2022-01-19 15:58] LABS: ALBUMIN 3.9 g/dL (3.2-5.0); ALKALINE PHOSPHATASE 58 u/l (38-126); ANION GAP 18 (6-22 (CALC)); BILIRUBIN, TOTAL 0.2 mg/dL (0.0-1.4); BUN 3 mg/dL (7-17); BUN/CREATININE RATIO 7 (12-20 (CALC)); CARBON DIOXIDE 14 mmol/l (22-30); CHLORIDE 107 mmol/l (95-108); CREATININE 0.4 mg/dL (0.5-1.0); GFR FOR AFR.AMER. > 60 ML/MIN (>=60 (CALC)); GFR OTHER RACES > 60 ML/MIN (>=60 (CALC)); LIPASE 100 u/l (23-300); POTASSIUM 3.5 mmol/l (3.5-5.1); SGOT/AST 28 u/l (14-36); SODIUM 135 mmol/l (137-146); TOTAL PROTEIN 6.7 g/dL (6.3-8.2)
[2022-01-19 16:00] VITALS: BP 145/95
[2022-01-19 16:16] LABS: BETA-HCG, QUANT(RESULT NUMBER) 85161 mIU/mL
[2022-01-19 17:48] VITALS: BP 145/95
== END 2022-01-19 17:40 | disposition left against medical advice (07) ==
LOC: ED 14:03
PROVIDERS: Emergency Medicine
DX: O21.9 Vomiting of pregnancy, unspecified (principal); Z3A.10 10 weeks gestation of pregnancy; R10.13 Epigastric pain
CPT/HCPCS: S0164

== ENCOUNTER 2022-01-20 02:33 | Emergency (ER) | payer OTHER ==
[~2022-01-20] VITALS: Ht 149.9 cm; Wt 98.6 kg
[2022-01-20 04:14] LABS: HEMATOCRIT 30.1 % (37.0-47.0); HEMOGLOBIN 8.8 g/dl (12.0-16.0); IMMATURE GRANULOCYTES 0.6 % (0.0-5.0); MEAN CELL VOLUME 71.3 fL CALC (80.0-100.0); MEAN CORPUSCULAR HGB 20.9 pG CALC (26.0-32.0); MEAN CORPUSCULAR HGB CONC 29.2 g/dL CAL (32.0-36.0); NEUT# 8.68 thou/uL (2.00-7.15); RED BLOOD COUNT 4.22 mill/uL (4.20-5.60)
[2022-01-20 04:31] LABS: ALBUMIN 4.3 g/dL (3.2-5.0); ALKALINE PHOSPHATASE 53 u/l (38-126); BUN 2 mg/dL (7-17); BUN/CREATININE RATIO 6 (12-20 (CALC)); CHLORIDE 107 mmol/l (95-108); CREATININE 0.4 mg/dL (0.5-1.0); GFR FOR AFR.AMER. > 60 ML/MIN (>=60 (CALC)); GFR OTHER RACES > 60 ML/MIN (>=60 (CALC)); LIPASE 143 u/l (23-300); POTASSIUM 4.1 mmol/l (3.5-5.1); SGOT/AST 36 u/l (14-36); SODIUM 135 mmol/l (137-146); TOTAL PROTEIN 7.5 g/dL (6.3-8.2)
[2022-01-20 04:35] LABS: ANION GAP 21 (6-22 (CALC)); BILIRUBIN, TOTAL 0.4 mg/dL (0.0-1.4); CARBON DIOXIDE 11 mmol/l (22-30)
[2022-01-20 05:10] LABS: URINE BILIRUBIN - DIPSTICK NEGATIVE (NEGATIVE); URINE BLOOD DIPSTICK NEGATIVE (NEGATIVE); URINE COLOR YELLOW; URINE GLUCOSE - DIPSTICK NEGATIVE (NEGATIVE); URINE KETONE >=80 mg/dL (NEGATIVE); URINE LEUK ESTERASE NEGATIVE (NEGATIVE); URINE PROTEIN - DIPSTICK NEGATIVE (NEG-TRACE); URINE SPECIFIC GRAVITY 1.025; URINE UROBILINOGEN - DIPSTICK 0.2 E.U./dL (0.2)
[2022-01-20 05:11] LABS: URINE NITRITE - DIPSTICK NEGATIVE (Negative)
[2022-01-20 05:18] LABS: BETA-HCG, QUANT(RESULT NUMBER) 89287 mIU/mL
[2022-01-20 10:36] LABS: ANION GAP 17 (6-22 (CALC)); BUN 2 mg/dL (7-17); BUN/CREATININE RATIO 5 (12-20 (CALC)); CARBON DIOXIDE 17 mmol/l (22-30); CHLORIDE 105 mmol/l (95-108); CREATININE 0.4 mg/dL (0.5-1.0); GFR FOR AFR.AMER. > 60 ML/MIN (>=60 (CALC)); GFR OTHER RACES > 60 ML/MIN (>=60 (CALC)); SODIUM 135 mmol/l (137-146)
[2022-01-20 11:07] VITALS: BP 139/96
== END 2022-01-20 11:10 | disposition home or self-care (01) ==
LOC: ED 02:33
PROVIDERS: Emergency Medicine; Internal Medicine
DX: O26.891 Other specified pregnancy related conditions, first trimester (principal); R11.2 Nausea with vomiting, unspecified; G89.29 Other chronic pain; O99.321 Drug use complicating pregnancy, first trimester; F12.20 Cannabis dependence, uncomplicated; M06.9 Rheumatoid arthritis, unspecified; O99.891 Other specified diseases and conditions complicating pregnancy; Z3A.11 11 weeks gestation of pregnancy
CPT/HCPCS: J0131; Q9967

== ENCOUNTER 2022-04-13 04:40 | Emergency (ER) | payer OTHER ==
[~2022-04-13] VITALS: Ht 149.9 cm; Wt 100.0 kg
[2022-04-13 04:53] VITALS: BP 129/81
[2022-04-13] MEDS ORDERED: FLEXERIL5 M1 PO (05:29)
[2022-04-13 05:59] LABS: BASO% 0.5 % (0-3); EOS% 1.4 % (0-8); HEMATOCRIT 27.9 % (37.0-47.0); HEMOGLOBIN 8.6 g/dl (12.0-16.0); IMMATURE GRANULOCYTES 0.1 % (0.0-5.0); LYMPH% 25.8 % (15-41); MEAN CELL VOLUME 75.4 fL CALC (80.0-100.0); MEAN CORPUSCULAR HGB 23.2 pG CALC (26.0-32.0); MEAN CORPUSCULAR HGB CONC 30.8 g/dL CAL (32.0-36.0); MONO% 7.1 % (2-13); NEUT# 7.01 thou/uL (2.00-7.15); NEUT% 65.1 % (42-76); RED BLOOD COUNT 3.7 mill/uL (4.20-5.60); RED CELL DISTRI WIDTH 17.8 % (11.5-15.5)
[2022-04-13 06:11] LABS: ALBUMIN 3.7 g/dL (3.2-5.0); ALKALINE PHOSPHATASE 69 u/l (38-126); BUN 4 mg/dL (7-17); BUN/CREATININE RATIO 9 (12-20 (CALC)); CHLORIDE 108 mmol/l (95-108); CREATININE 0.5 mg/dL (0.5-1.0); GFR FOR AFR.AMER. > 60 ML/MIN (>=60 (CALC)); GFR OTHER RACES > 60 ML/MIN (>=60 (CALC)); LIPASE 40 u/l (23-300); POTASSIUM 3.4 mmol/l (3.5-5.1); SGOT/AST 18 u/l (14-36); SODIUM 138 mmol/l (137-146); TOTAL PROTEIN 6.9 g/dL (6.3-8.2)
[2022-04-13 06:16] LABS: ANION GAP 10 (6-22 (CALC)); BILIRUBIN, TOTAL 0.1 mg/dL (0.0-1.4); CARBON DIOXIDE 23 mmol/l (22-30)
[2022-04-13] MEDS ORDERED: PHENERGAN25 MG RE (06:37)
[2022-04-13 06:56] VITALS: BP 129/81
== END 2022-04-13 07:10 | disposition home or self-care (01) ==
LOC: ED 04:40
PROVIDERS: Family Medicine
DX: O99.619 Diseases of the digestive system complicating pregnancy, unspecified trimester (principal); R11.15 Cyclical vomiting syndrome unrelated to migraine; Z3A.00 Weeks of gestation of pregnancy not specified; R10.9 Unspecified abdominal pain; M79.10 Myalgia, unspecified site; O99.891 Other specified diseases and conditions complicating pregnancy; G89.29 Other chronic pain; O99.322 Drug use complicating pregnancy, second trimester; F11.90 Opioid use, unspecified, uncomplicated; Z3A.20 20 weeks gestation of pregnancy; Z53.29 Procedure and treatment not carried out because of patient's decision for other reasons
CPT/HCPCS: S0164

== ENCOUNTER 2022-05-20 14:38 | Emergency (ER) | payer OTHER ==
[~2022-05-20] VITALS: Ht 149.9 cm; Wt 113.0 kg
[2022-05-20 19:01] VITALS: BP 138/89
[2022-05-21] MEDS ORDERED: PHENERGAN25 MG RE (06:00)
[2022-05-21] MEDS ORDERED: CHROMAGEN1 CAP PO (06:00)
[2022-05-21] MEDS ORDERED: PROTONIX40 M2 PO (06:00)
== END 2022-05-20 19:08 | disposition left against medical advice (07) ==
LOC: ED 14:38
DX: O99.612 Diseases of the digestive system complicating pregnancy, second trimester (principal); K92.0 Hematemesis; Z90.49 Acquired absence of other specified parts of digestive tract; Z3A.20 20 weeks gestation of pregnancy; Z53.29 Procedure and treatment not carried out because of patient's decision for other reasons

== ENCOUNTER 2022-05-20 19:34 | Emergency (ER) | payer OTHER ==
[2022-05-21] MEDS ORDERED: PROTONIX40 M2 PO (06:00)
[2022-05-21] MEDS ORDERED: PHENERGAN25 MG RE (06:00)
[2022-05-21] MEDS ORDERED: CHROMAGEN1 CAP PO (06:00)
== END 2022-05-20 20:02 | disposition left against medical advice (07) | DRG 951 ==
LOC: ED 19:34 → LWOBS 20:02
DX: Z53.21 Procedure and treatment not carried out due to patient leaving prior to being seen by health care provider (principal)

== ENCOUNTER 2022-05-21 04:03 | Emergency (ER) | payer OTHER ==
[~2022-05-21] VITALS: Ht 149.9 cm; Wt 116.0 kg
[2022-05-21 04:53] LABS: BASO% 0.3 % (0-3); EOS% 0.1 % (0-8); HEMATOCRIT 26.4 % (37.0-47.0); HEMOGLOBIN 7.6 g/dl (12.0-16.0); IMMATURE GRANULOCYTES 0.8 % (0.0-5.0); LYMPH% 21.3 % (15-41); MEAN CELL VOLUME 72.1 fL CALC (80.0-100.0); MEAN CORPUSCULAR HGB 20.8 pG CALC (26.0-32.0); MEAN CORPUSCULAR HGB CONC 28.8 g/dL CAL (32.0-36.0); NEUT# 9.18 thou/uL (2.00-7.15); NEUT% 69.5 % (42-76); RED BLOOD COUNT 3.66 mill/uL (4.20-5.60); RED CELL DISTRI WIDTH 16.9 % (11.5-15.5)
[2022-05-21 05:06] LABS: ALBUMIN 3.6 g/dL (3.2-5.0); ALKALINE PHOSPHATASE 94 u/l (38-126); ANION GAP 11 (6-22 (CALC)); BUN 7 mg/dL (7-17); BUN/CREATININE RATIO 14 (12-20 (CALC)); CARBON DIOXIDE 19 mmol/l (22-30); CHLORIDE 110 mmol/l (95-108); CREATININE 0.5 mg/dL (0.5-1.0); GFR FOR AFR.AMER. > 60 ML/MIN (>=60 (CALC)); GFR OTHER RACES > 60 ML/MIN (>=60 (CALC)); LIPASE 85 u/l (23-300); POTASSIUM 3.5 mmol/l (3.5-5.1); SGOT/AST 28 u/l (14-36); SODIUM 136 mmol/l (137-146); TOTAL PROTEIN 6.4 g/dL (6.3-8.2)
[2022-05-21 05:09] LABS: ACT PARTIAL THROMBO TIME 19.8 SECONDS (20.0-32.5); PROTHROMBIN TIME 10.1 SECONDS (9.0-12.5)
[2022-05-21 05:15] LABS: BILIRUBIN, TOTAL 0.7 mg/dL (0.02-1.3)
[2022-05-21 05:31] VITALS: BP 115/74
[2022-05-21 05:45] VITALS: BP 112/74
[2022-05-21] MEDS ORDERED: PROTONIX40 M2 PO (06:00)
[2022-05-21] MEDS ORDERED: PHENERGAN25 MG RE (06:00)
[2022-05-21] MEDS ORDERED: CHROMAGEN1 CAP PO (06:00)
[2022-05-21 06:39] VITALS: BP 112/74
== END 2022-05-21 07:00 | disposition home or self-care (01) ==
LOC: ED 04:03
PROVIDERS: Family Medicine
DX: O99.613 Diseases of the digestive system complicating pregnancy, third trimester (principal); K29.71 Gastritis, unspecified, with bleeding; O99.013 Anemia complicating pregnancy, third trimester; D64.9 Anemia, unspecified; Z3A.28 28 weeks gestation of pregnancy
CPT/HCPCS: S0164

== ENCOUNTER 2022-06-07 06:32 | Emergency (ER) | payer OTHER ==
[2022-06-07] VITALS (22 sets, daily range): BP systolic 99–142; BP diastolic 51–104
[~2022-06-07] VITALS: Ht 149.9 cm; Wt 113.6 kg
[~2022-06-07 06:32] MED LIST changes: +CHROMAGEN1 CAP PO
[2022-06-07 07:16] LABS: BASO% 0.2 % (0-3); EOS% 0.2 % (0-8); HEMATOCRIT 29.5 % (37.0-47.0); HEMOGLOBIN 8.5 g/dl (12.0-16.0); IMMATURE GRANULOCYTES 0.2 % (0.0-5.0); LYMPH% 16.1 % (15-41); MEAN CELL VOLUME 70.7 fL CALC (80.0-100.0); MEAN CORPUSCULAR HGB 20.4 pG CALC (26.0-32.0); MEAN CORPUSCULAR HGB CONC 28.8 g/dL CAL (32.0-36.0); MONO% 4.5 % (2-13); NEUT# 8.1 thou/uL (2.00-7.15); NEUT% 78.8 % (42-76); RED BLOOD COUNT 4.17 mill/uL (4.20-5.60); RED CELL DISTRI WIDTH 17.1 % (11.5-15.5)
[2022-06-07 07:28] LABS: ALBUMIN 4.1 g/dL (3.2-5.0); ALKALINE PHOSPHATASE 124 u/l (38-126); ANION GAP 15 (6-22 (CALC)); BUN 4 mg/dL (7-17); BUN/CREATININE RATIO 8 (12-20 (CALC)); CARBON DIOXIDE 19 mmol/l (22-30); CHLORIDE 106 mmol/l (95-108); CREATININE 0.5 mg/dL (0.5-1.0); GFR FOR AFR.AMER. > 60 ML/MIN (>=60 (CALC)); GFR OTHER RACES > 60 ML/MIN (>=60 (CALC)); LIPASE 151 u/l (23-300); POTASSIUM 3.5 mmol/l (3.5-5.1); SGOT/AST 23 u/l (14-36); SODIUM 137 mmol/l (137-146); TOTAL PROTEIN 7.4 g/dL (6.3-8.2)
[2022-06-07 07:34] LABS: BILIRUBIN, TOTAL 0.2 mg/dL (0.02-1.3)
== END 2022-06-07 17:46 | disposition short-term general hospital (02) ==
LOC: ED 06:32
PROVIDERS: Emergency Medicine
DX: O99.891 Other specified diseases and conditions complicating pregnancy (principal); R10.13 Epigastric pain; M06.9 Rheumatoid arthritis, unspecified; Z3A.30 30 weeks gestation of pregnancy; Z87.11 Personal history of peptic ulcer disease

== ENCOUNTER 2022-06-09 16:30 | Emergency (ER) | payer OTHER ==
[~2022-06-09] VITALS: Ht 149.9 cm; Wt 99.7 kg
[2022-06-09 18:04] LABS: BASO% 0.4 % (0-3); HEMATOCRIT 26.7 % (37.0-47.0); HEMOGLOBIN 7.4 g/dl (12.0-16.0); IMMATURE GRANULOCYTES 0.3 % (0.0-5.0); LYMPH% 17.1 % (15-41); MEAN CORPUSCULAR HGB 19.7 pG CALC (26.0-32.0); MEAN CORPUSCULAR HGB CONC 27.7 g/dL CAL (32.0-36.0); MONO% 5.8 % (2-13); NEUT# 8.66 thou/uL (2.00-7.15); NEUT% 76.4 % (42-76); RED BLOOD COUNT 3.76 mill/uL (4.20-5.60); RED CELL DISTRI WIDTH 17.5 % (11.5-15.5)
[2022-06-09 18:16] LABS: ALBUMIN 3.6 g/dL (3.2-5.0); ALKALINE PHOSPHATASE 130 u/l (38-126); CHLORIDE 110 mmol/l (95-108); CREATININE 0.5 mg/dL (0.5-1.0); GFR FOR AFR.AMER. > 60 ML/MIN (>=60 (CALC)); GFR OTHER RACES > 60 ML/MIN (>=60 (CALC)); LIPASE 80 u/l (23-300); SGOT/AST 23 u/l (14-36); SODIUM 134 mmol/l (137-146); TOTAL PROTEIN 6.5 g/dL (6.3-8.2)
[2022-06-09 18:17] LABS: ANION GAP 16 (6-22 (CALC)); BILIRUBIN, TOTAL 0.4 mg/dL (0.02-1.3); BUN 2 mg/dL (7-17); BUN/CREATININE RATIO 4 (12-20 (CALC)); CARBON DIOXIDE 12 mmol/l (22-30)
[2022-06-09 19:28] VITALS: BP 120/77
== END 2022-06-09 19:29 | disposition short-term general hospital (02) ==
LOC: ED 16:30
PROVIDERS: Family Medicine
DX: O21.2 Late vomiting of pregnancy (principal); O26.893 Other specified pregnancy related conditions, third trimester; R10.13 Epigastric pain; O99.891 Other specified diseases and conditions complicating pregnancy; M06.9 Rheumatoid arthritis, unspecified; Z3A.31 31 weeks gestation of pregnancy
CPT/HCPCS: J0131; S0164

== ENCOUNTER 2022-09-23 05:22 | Emergency (ER) | payer OTHER ==
[~2022-09-23] VITALS: Ht 149.9 cm; Wt 113.0 kg
[2022-09-23] MEDS ORDERED: CYCLOBENZAPRINE10 MG PO (06:27)
[2022-09-23 07:22] VITALS: BP 137/87
== END 2022-09-23 07:15 | disposition left against medical advice (07) ==
LOC: ED 05:22
DX: S39.012A Strain of muscle, fascia and tendon of lower back, initial encounter (principal); M06.9 Rheumatoid arthritis, unspecified; Z79.891 Long term (current) use of opiate analgesic; X58.XXXA Exposure to other specified factors, initial encounter

== ENCOUNTER 2024-07-07 22:20 | Observation (INO) | payer OTHER ==
[~2024-07-07] VITALS: Ht 149.9 cm; Wt 78.0 kg
[~2024-07-07 22:20] MED LIST changes: +CYCLOBENZAPRINE10 MG PO
[2024-07-07 22:30] VITALS: BP 132/95
[2024-07-07] MEDS ORDERED: SODIUM CHLORIDE 0.9% 1,000 ML IV STA (22:31)
[2024-07-07] MEDS ORDERED: Pantoprazole Sodium 40 MG VIAL (Protonix) IV STA (22:31)
[2024-07-07] MEDS ORDERED: PROMETHAZINE HCL 25 MG/ML AMP IV STA (22:31)
[2024-07-07] MEDS ORDERED: LOPERAMIDE HCL 2 MG CAP PO ONE (22:35)
[2024-07-07 22:45] VITALS: BP 126/96
[2024-07-07 23:00] VITALS: BP 126/94
[2024-07-07 23:03] LABS: BILIRUBIN, TOTAL 0.4 mg/dL (0.02-1.3); CREATININE 0.5 mg/dL (0.5-1.0); POTASSIUM 4.2 mmol/l (3.5-5.1); TOTAL PROTEIN 6.9 g/dL (6.3-8.2)
[2024-07-07 23:07] LABS: BASO% 0.4 % (0-3); EOS% 6.2 % (0-8); IMMATURE GRANULOCYTES 0.1 % (0.0-5.0); LYMPH% 24.5 % (15-41); MEAN CORPUSCULAR HGB 25.4 pG CALC (26.0-32.0); MEAN CORPUSCULAR HGB CONC 31.2 g/dL CAL (32.0-36.0); MONO% 6.3 % (2-13); NEUT# 6.23 thou/uL (2.00-7.15); NEUT% 62.5 % (42-76); RED BLOOD COUNT 4.52 mill/uL (4.20-5.60); RED CELL DISTRI WIDTH 16.2 % (11.5-15.5)
[2024-07-07 23:09] LABS: HEMATOCRIT 36.9 % (37.0-47.0); HEMOGLOBIN 11.5 g/dl (12.0-16.0); MEAN CELL VOLUME 81.6 fL CALC (80.0-100.0)
[2024-07-07 23:15] VITALS: BP 128/85
[2024-07-07 23:30] VITALS: BP 126/85
[2024-07-07 23:45] VITALS: BP 118/87
[2024-07-08] VITALS: BP 123/89
[2024-07-08] MEDS ORDERED: MORPHINE SULFATE 4 MG/ML VIAL IV STA (00:27)
[2024-07-08] MEDS ORDERED: DiphenhydrAMINE HCL 50 MG/ML SDV IV ONE (00:30)
[2024-07-08] MEDS ORDERED: KETOROLAC TROMETHAMINE 30 MG/ML SDV IV ONE (00:30)
[2024-07-08] MEDS ORDERED: ACETAMINOPHEN 325 MG/TAB PO PRN ×2 (02:00→09:00)
[2024-07-08] MEDS ORDERED: IBUPROFEN 800 MG/TAB PO PRN (02:00)
[2024-07-08] MEDS ORDERED: ONDANSETRON 4 MG/TAB ODT PO PRN (02:00)
[2024-07-08] MEDS ORDERED: Polyethylene Glycol 3350 17 GM/PKT PO PRN (02:00)
[2024-07-08] MEDS ORDERED: ENOXAPARIN SODIUM 40 MG/0.4 ML SYR SC ONE (02:00)
[2024-07-08] MEDS ORDERED: ONDANSETRON HCl 4 MG/2 ML SDV IV PRN (02:00)
[2024-07-08] MEDS ORDERED: ALUM & MAG HYDROX-SIMETHICONE 30 ML PO PRN (02:00)
[2024-07-08] MEDS ORDERED: FAMOTIDINE 10MG/ML 2ML SDV IV PRN (02:00)
[2024-07-08] MEDS ORDERED: LACTATED RINGER'S 1,000 ML IV PRN ×2 (02:05→21:25)
[2024-07-08] MEDS ORDERED: MORPHINE SULFATE 4 MG/ML VIAL IV PRN (02:05)
[2024-07-08] MEDS ORDERED: PROMETHAZINE HCL 25 MG/ML AMP IV PRN (02:05)
[2024-07-08] MEDS ORDERED: PROMETHAZINE HCL 25 MG/ML AMP IV ONE (02:20)
[2024-07-08] MEDS ORDERED: CLARIFY DOSE PO PRN (02:45)
[2024-07-08 03:18] VITALS: BP 104/67
[2024-07-08 04:17] VITALS: BP 129/77
[2024-07-08] MEDS ORDERED: KETOROLAC TROMETHAMINE 30 MG/ML SDV IV SCH (06:00)
[2024-07-08 06:07] VITALS: BP 110/74
[2024-07-08] MEDS ORDERED: HYDROmorphone HCL 2 MG/AMP IV PRN (09:00)
[2024-07-08] MEDS ORDERED: HYDROcodone 5 MG/Acetaminophen 325 MG/COMBO PO PRN (09:00)
[2024-07-08] MEDS ORDERED: ONDANSETRON 4 MG/TAB ODT SL PRN (09:00)
[2024-07-08] MEDS ORDERED: CYCLOBENZAPRINE HCL 5 MG TAB PO SCH (09:00)
[2024-07-08 15:01] VITALS: BP 98/59
[2024-07-08 19:14] VITALS: BP 96/56
[2024-07-08] MEDS ORDERED: ENOXAPARIN SODIUM 40 MG/0.4 ML SYR SC SCH (21:00)
[2024-07-09 01:47] VITALS: BP 102/64
[2024-07-09 03:52] VITALS: BP 100/53
[2024-07-09 06:33] VITALS: BP 94/58
[2024-07-09 07:00] LABS: BILIRUBIN, TOTAL 0.5 mg/dL (0.02-1.3); CREATININE 0.4 mg/dL (0.5-1.0); MAGNESIUM 1.4 mg/dL (1.6-2.3); POTASSIUM 3.4 mmol/l (3.5-5.1)
[2024-07-09 07:04] LABS: ALBUMIN 2.6 g/dL (3.2-5.0); TOTAL PROTEIN 5.2 g/dL (6.3-8.2)
[2024-07-09] MEDS ORDERED: MAGNESIUM SULFATE HEPTAHYDRATE 100 ML IV SCH (08:30)
[2024-07-09 08:40] LABS: BASO% 0.5 % (0-3); EOS% 12.3 % (0-8); LYMPH% 47.3 % (15-41); MEAN CELL VOLUME 82.5 fL CALC (80.0-100.0); MEAN CORPUSCULAR HGB 25.6 pG CALC (26.0-32.0); MONO% 11.1 % (2-13); NEUT# 1.12 thou/uL (2.00-7.15); NEUT% 28.8 % (42-76); RED BLOOD COUNT 3.71 mill/uL (4.20-5.60); RED CELL DISTRI WIDTH 16.1 % (11.5-15.5)
[2024-07-09 08:52] LABS: HEMATOCRIT 30.6 % (37.0-47.0); HEMOGLOBIN 9.5 g/dl (12.0-16.0)
[2024-07-09 08:53] VITALS: BP 116/72
[2024-07-09 10:56] LABS: CHOLESTEROL HDL RATIO 2.6 (<4.4 (CALC))
== END 2024-07-09 14:02 | disposition home or self-care (01) | DRG 440 ==
LOC: ED 22:20 → ED-I 07-08 01:40 → ED 07-08 02:03 → MS2 07-08 02:04
PROVIDERS: Family Medicine; Nurse Practitioner Family; ADMIT Internal Medicine; ATTEND Internal Medicine
DX: K85.90 Acute pancreatitis without necrosis or infection, unspecified (principal); M06.9 Rheumatoid arthritis, unspecified; R16.2 Hepatomegaly with splenomegaly, not elsewhere classified; G89.4 Chronic pain syndrome; Z90.49 Acquired absence of other specified parts of digestive tract; Z79.891 Long term (current) use of opiate analgesic
CPT/HCPCS: J1171; J1200; J1650; J2470; J2550; J3475; Q9967